=== PATIENT | male | born 1965 | race Caucasian/White ===

== ENCOUNTER 2019-11-28 14:17 | Outpatient (CLI) | payer SELFPAY ==
--- NOTE | 2019-11-28 14:22 | XR_ITS ---
WS: [id number] FOOT RIGHT TECHNIQUE: 3 views of the right foot CLINICAL INFORMATION: ATTN FIRST METATARSAL COMPARISON: November 22, 2019 FINDINGS: Normal tarsal metatarsal alignment. A few small erosions involving the first metatarsal head medially with soft tissue calcification. Recommend correlation for history of gout. No acute fractures. Normal calcaneus. Normal visualized talar dome. XR/XR foot RT min 3V* [id number] IMPRESSION: 1. A few small erosions involving the first metatarsal head medially with soft tissue calcifications suspicious for gout. Recommend correlation with clinical history. 2. No acute fractures.
== END 2019-11-28 14:18 | disposition home or self-care (01) ==
LOC: RADWPI 14:19
PROVIDERS: Family Provider Family Medicine; PCP Family Medicine; Visit Provider Family Medicine
DX: M79.671 Pain in right foot (principal); M85.871 Other specified disorders of bone density and structure, right ankle and foot
CPT/HCPCS: 73630

== ENCOUNTER 2020-12-31 14:31 | Outpatient (CLI) | payer SELFPAY | END 2020-12-31 14:32 | disposition home or self-care (01) | LOC: SPT 14:32 | PROVIDERS: Family Provider Family Medicine; PCP Family Medicine; Visit Provider Specialist | DX: Z46.89 Encounter for fitting and adjustment of other specified devices (principal); S82.52XD Displaced fracture of medial malleolus of left tibia, subsequent encounter for closed fracture with routine healing; X58.XXXD Exposure to other specified factors, subsequent encounter | CPT/HCPCS: 73590; 73610; 87635; L4361 ==

== ENCOUNTER 2021-01-01 15:29 | Outpatient (CLI) | payer SELFPAY ==
--- NOTE | 2021-01-01 15:45 | CT_ITS ---
WS: [id number] CT LEFT ANKLE NONCONTRAST, 3-D REFORMATS. HISTORY: S82.52XA - Displaced fracture of medial malleolus Technique: All CT scans at [facility] use at least one of these dose optimization techniq ues: automated exposure control; mA and/or kV adjustment per patient size (includes targeted exams wh ere dose is matched to clinical indication); or iterative reconstruction. DLP: 555.05 mGycm COMPARISON: 12/31/2020 Comminuted, mildly displaced fracture involving the medial malleolus. Several small avulsion fragmen ts are noted along the anterior and posterior medial malleolus. The main fracture is displaced 3 mm m edially. No loose body in joint the space. There is a tiny avulsion fracture versus osteophyte from t he anterior tibial plafond. No widening of the ankle mortise. Talus is intact. Calcaneus is intact. Moderate amount of soft tissue edema surrounding the ankle and foot. There is a small joint effusion extending into the anterior and posterior recesses. CT/CT ankle LT wo con* [id number] IMPRESSION: 1. Mildly comminuted and minimally displaced fracture involving the medial mal leolus. Minimal displacement by 3 mm of the main fracture fragment. 2. Small osteophyte versus avulsion fracture from the anterior tibial plafond.
== END 2021-01-01 15:30 | disposition home or self-care (01) ==
PROVIDERS: PCP Family Medicine; Visit Provider Specialist
DX: S82.52XA Displaced fracture of medial malleolus of left tibia, initial encounter for closed fracture (principal); X58.XXXA Exposure to other specified factors, initial encounter
CPT/HCPCS: 73700

== ENCOUNTER 2021-01-04 08:03 | Day surgery (SDC) | payer SELFPAY ==
[2021-01-03 14:41] VITALS: BMI 28.8
[2021-01-04] VITALS (14 sets, daily range): BP systolic 137–166; BP diastolic 88–105; PULSE 70–81; RESP 13–18; TEMP 36.6–37.4; O2SAT 93–100
--- NOTE | 2021-01-04 | XR_ITS ---
WS: [id number] Left ankle, C-arm fluoroscopy, 01/04/2021 Clinical Data: OR PICS Comparison: Left ankle, 12/31/2020. Findings: 2 orthopedic screws reducing the medial malleolar fracture. The lateral malleolus is unremarkable. The ankle mortise is normal. XR/XR ankle LT 2V [id number] Impression: Internal fixation of medial malleolar fracture of the left ankle.
--- NOTE | 2021-01-04 | SCC_ITS ---
Procedure Done: Open reduction internal fixation left medial malleolar fracture 144.9 seconds of fluoroscopic guidance, for a cumulative dose of 4.18 mGy, was provided to Dr. Alexander by the radiology department. C-arm images of the LEFT ankle were saved for the patient's permanent record. [facility] HOSPITALReymundo
--- NOTE | 2021-01-04 09:07 | W.PM.OPSUD ---
Surgery/Procedure H&P Update DATE OF PROCEDURE: January 04, 2021 DATE H&P PERFORMED: 12/31/20 H&P UPDATE INFORMATION: I have reviewed H&P completed within last 30 days, I have examined patient prior to procedure, No changes to prior documentation and H&P is in [facility] on date indicated PREOP DIAGNOSIS: Left medial malleolar fracture PLANNED PROCEDURE: Operation Date: 01/04/21 09:20 Proposed Procedures p ORIF left ankle medial malleolus fracture 03489 s82.52XA(Left) - Hanane Alexander MD Related Problem List Diagnoses (1) Fracture of medial malleolus, left, closed:
[2021-01-04] MEDS: sodium chloride 0.9% 1,000 ML 30 ML IV (09:09)
[2021-01-04] MEDS: CELEcoxib 200 mg Capsule 400 MG PO (09:10)
[2021-01-04] MEDS: acetaminophen 1,000 MG/100 ML PIGGYBACK 400 MG IV (09:11)
--- NOTE | 2021-01-04 09:11 | ANES.PREANE2 ---
Pre-Anesthetic Assessment Pre-Anesthetic Assessment: Height/Weight: Height 1.75 m Weight 88.451 kg Temp Pulse Resp BP Pulse Ox 97.8 F 76 14 155/105 96 01/04/21 08:31 01/04/21 08:31 01/04/21 08:31 01/04/21 08:31 01/04/21 08:31 Preop Diagnosis: Left medial malleolar fracture Proposed Procedure: Operation Date: 01/04/21 09:20 Proposed Procedures p ORIF left ankle medial malleolus fracture 33465 s82.52XA(Left) - Hanane Alexander MD Was Beta Jean Pierre taken within 24 hours: N/A Was Clonidine taken within 24 hours: N/A Last intake: Intake Last Liquid Date 01/03/21 Last Liquid Time 23:00 Last Solid Date 01/03/21 Last Solid Time 19:00 Social: Social History: No alcohol and No tobacco Exam: Pre-Anes Outpt Exam: alert, oriented x 3, clear to auscultation bilaterally and regular rate & rhythm Airway: Submandibular: WNL Cervical ROM: WNL MP: 3 Dentition: Full History/ROS: No significant history except as noted Anesthetic Plan: ASA status: 1 Anesthesia: General Risk of > 500 ml blood loss (7ml/kg in children): No Meds/Allergies Current Medications: Current Medications Generic Name Dose Route Start Last Admin Trade Name Freq PRN Reason Stop Dose Admin Sodium Chloride 1,000 mls @ 30 ml s/hr 01/04/21 08:30 01/04/21 09:09 Sodium Chloride 0.9% IV 01/05/21 08:29 30 mls/hr .Q24H JENNIFER Administration Data Anesthesia Cardiac Studies: No Data to Display
[2021-01-04] MEDS: fentaNYL 50 mcg/mL INJ 2mL IVP ×2 (09:26→11:10)
[2021-01-04] MEDS: ceFAZolin 1,000 mg SDV 1000 MG IRRIGATION (10:11)
[2021-01-04] MEDS: ondansetron 2 mg/ML SDV 2 mL 4 MG IVP ×2 (11:08→12:07)
[2021-01-04] MEDS: meperidine 50 mg/mL INJ 12.5 MG IVP (11:31)
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
--- NOTE | 2021-01-04 11:42 | SUR.PHASEI ---
1108 pt awake alert c/o of pain to lt foot ankle area , distal toe pink warm with cap refill less than 3 seconds, 1110 see pain med given for pain 1131 pt states pain is increased to 8 pt grimicing and shivering warm blankets x 2 see med given 1143 pt awake states pain is better, see earlier meds given will give report to ops.
--- NOTE | 2021-01-04 12:06 | SUR.PHASEII ---
medicated for nausea
[2021-01-04] MEDS: HYDROcodone-acetaminophen 5-325 mg Tablet 1 TAB PO (13:15)
--- NOTE | 2021-01-04 15:51 | ANE.PACU2 ---
Inpatient post-anesthesia follow up: Airway intact: Yes Vital signs: Temperature 98.0 F Pulse Rate 74 Respiratory Rate 14 Blood Pressure 137/95 Pulse Oximetry 96 Oxygen Delivery Me thod Room Air Oxygen Flow Rate Fraction of Inspir ed Oxygen Hydration adequate: Yes Nausea and vomiting: No Pain level: 2 Mental status: Baseline
== END 2021-01-04 13:15 | disposition home or self-care (01) ==
PROVIDERS: PCP Family Medicine; Visit Provider Specialist
PROC: (CPT 27766; principal; 2021-01-04 09:20)
DX: S82.52XA Displaced fracture of medial malleolus of left tibia, initial encounter for closed fracture (principal); V86.96XA Unspecified occupant of dirt bike or motor/cross bike injured in nontraffic accident, initial encounter
CPT/HCPCS: 27766; 73600; 76000; 96365; 96374; C1713; J0330; J0690; J2175; J2250; J2405; J2704; J3010; J3490; J7030

== ENCOUNTER → 2021-01-21 10:23 | Outpatient (BNVA) | payer SELFPAY | PROVIDERS: PCP Family Medicine; Visit Provider Specialist | DX: Z48.89 Encounter for other specified surgical aftercare (principal) | CPT/HCPCS: 73610 ==

== ENCOUNTER → 2021-02-14 08:52 | Outpatient (BNVA) | payer SELFPAY | PROVIDERS: PCP Family Medicine; Visit Provider Specialist | DX: Z48.89 Encounter for other specified surgical aftercare (principal); S82.52XA Displaced fracture of medial malleolus of left tibia, initial encounter for closed fracture; X58.XXXA Exposure to other specified factors, initial encounter | CPT/HCPCS: 73610 ==

== ENCOUNTER 2021-02-14 11:37 | Outpatient (CLI) | payer SELFPAY | END 2021-02-14 11:38 | disposition home or self-care (01) | LOC: SPT 11:38 | PROVIDERS: PCP Family Medicine; Visit Provider Specialist | DX: Z46.89 Encounter for fitting and adjustment of other specified devices (principal); S82.52XD Displaced fracture of medial malleolus of left tibia, subsequent encounter for closed fracture with routine healing; X58.XXXD Exposure to other specified factors, subsequent encounter | CPT/HCPCS: L1902 ==

== ENCOUNTER 2021-09-29 15:55 | Emergency (ER) | payer SELFPAY ==
[2021-09-29] VITALS (9 sets, daily range): BP systolic 102–154; BP diastolic 78–118; PULSE 105–135; RESP 16–20; TEMP 36.7; O2SAT 95–98; BMI 29.5
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
--- NOTE | 2021-09-29 16:01 | ECG_ITS ---
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 Measurements Intervals [place] Rate: 110 P: 55 MT: 151 QRS: -18 QRSD: 81 T: 71 QT: 344 QTc: 465 Interpretive Statements SINUS TACHYCARDIA SEPTAL MYOCARDIAL INFARCTION , PROBABLY OLD [40+ ms Q WAVE IN V1/V2] No previous ECG available for comparison Electronically Signed On 09-29-2021 22:01:43 CDT by Maye Dela Cruz M.D. [email or web address] general [id number]
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
[2021-09-29 16:25] LABS: Basophils # 0.1 10^3/uL (0.0-0.1); Basophils % 0.3 %; Eosinophils % 0.2 %; Hematocrit 46.8 % (42.0-52.0); Hemoglobin 15.7 g/dL (11.7-16.6); Lymphocytes # 2.2 10^3/uL (0.8-4.8); Lymphocytes % 10.9 %; Mean Corpuscular HGB Conc 33.5 g/dL (30.0-36.0); Mean Corpuscular Hemoglobin 31.6 pg (28.0-34.0); Mean Corpuscular Volume 94.2 fl (80-94); Monocytes # 1.2 10^3/uL (0.2-0.9); Monocytes % 5.9 %; Neutrophils # 16.08 10^3/uL (1.8-7.7); Neutrophils % 81.4 %; Nucleated Red Blood Cells % 0 %; Platelet Count 303 10^3/cmm (130-400); Red Blood Count 4.97 10^6/uL (4.1-5.3); Red Cell Distribution Width 13.1 % (12.1-15.1); White Blood Count 19.8 10^3/uL (4.0-10.0)
[2021-09-29 16:34] LABS: INR 1.06 (0.8-1.2); Partial Thromboplastin Time 20.9 SECONDS (23.9-36.7)
[2021-09-29 16:45] LABS: Alanine Aminotransferase 65 U/L (0-41); Albumin Level 3.9 g/dL (3.5-5.2); Alkaline Phosphatase 102 IU/L (40-130); Anion Gap 18.2 (5-19); Aspartate Amino Transferase 55 U/L (0-40); Blood Urea Nitrogen 11 mg/dL (6-20); Calcium 8.6 mg/dL (8.5-10.5); Carbon Dioxide 20 mmol/L (22-29); Chloride 104 mmol/L (98-107); Globulin 2.5 g/dL (1.3-4.6); Glomerular Filtration Rate 44.9 mL/min (90-130); Glucose 215 mg/dL (65-115); Osmolality Calculated 294 mOsm/kg (285-295); Potassium 3.2 mmol/L (3.5-5.1); Sodium 139 mmol/L (136-145); Total Bilirubin 0.5 mg/dL (0.15-1.2); Total Protein 6.4 g/dL (6.6-8.7)
[2021-09-29 16:46] LABS: Troponin(5th) Baseline 18 ng/L (0-15)
[2021-09-29] MEDS: tetanus-diphtheria tox (adult) 0.5 mL SDV IM (16:57)
[2021-09-29] MEDS: fentaNYL 50 mcg/mL INJ 2mL IVP ×2 (17:05→17:34)
--- NOTE | 2021-09-29 17:33 | XRR_ITS ---
PROCEDURE INFORMATION: Exam: XR Chest Exam date and time: 09/29/2021 5:38 PM Age: 56 years old Clinical indication: Device placement; Chest tube; Additional info: Chest tbue placement TECHNIQUE: Imaging protocol: XR of the chest. Views: 1 view. COMPARISON: CR (CHEST, ) 09/29/2021 4:31 PM FINDINGS: Tubes, catheters and devices: Interval placement of left-sided chest tube however the tube is noted just outside the thoracic cavity, lateral to the left upper ribs. Multiple left rib fractures are again noted with displacement. Lungs: Probable retrocardiac linear atelectasis. Pleural spaces: Small left pneumothorax which was better seen on the recent CT exam measuring about 20% on the CT images. Heart/Mediastinum: See Soft tissues finding. Bones/joints: See Tubes, catheters and devices finding. Soft tissues: Pneumomediastinum and soft tissue air is again noted similar to most recent examination. XR/XR chest 1V portable [id number] IMPRESSION: Interval placement of left chest tube with the tip outside the pleural space and should be repositioned.
--- NOTE | 2021-09-29 17:33 | XRR_ITS ---
PROCEDURE INFORMATION: Exam: XR Chest Exam date and time: 09/29/2021 6:16 PM Age: 56 years old Clinical indication: Device placement; Patient HX: L chest tube placement; Additional info: Chest tbue placement TECHNIQUE: Imaging protocol: XR of the chest. Views: 1 view. COMPARISON: CR XR chest 1V portable [id number] 09/29/2021 5:38 PM FINDINGS: Tubes, catheters and devices: The left chest tube has been reposition and is now projecting in the left superior/mid thorax. Again seen is left pneumothorax along the lateral aspect and in the left basilar region. Lungs: No consolidation. Pleural spaces: See Tubes, catheters and devices finding. Heart/Mediastinum: No cardiomegaly. Bones/joints: Multiple left rib fractures. Other findings: No other significant change. XR/XR chest 1V portable [id number] IMPRESSION: Repositioning of left chest tube as described above. No other significant change.
--- NOTE | 2021-09-29 17:45 | PC.NURSE ---
PATIENT CHEST TUBE PLACED BY PROVIDER. PATIENT CHEST TUBE SUCTION SET TO INTERMITTENT AND DRAINING.
--- NOTE | 2021-09-29 18:42 | PC.NURSE ---
KETAMINE WASTED WITH CHRISTIANNE MARIE, 410 MG.
== END 2021-09-29 19:04 | disposition short-term general hospital (02) ==
PROVIDERS: Emergency Provider Emergency Medicine; PCP Family Medicine
DX: S22.42XA Multiple fractures of ribs, left side, initial encounter for closed fracture (principal); J93.9 Pneumothorax, unspecified; T79.7XXA Traumatic subcutaneous emphysema, initial encounter; V28.4XXA Motorcycle driver injured in noncollision transport accident in traffic accident, initial encounter
CPT/HCPCS: 32551; 70450; 71045; 71260; 72125; 74177; 80053; 84484; 85025; 85610; 85730; 86850; 86900; 90471; 90714; 93005; 96374; 96375; 99291; 99292; J3010; J3490; Q9967

== ENCOUNTER → 2022-08-12 12:45 | Outpatient (BNVA) | payer SELFPAY | PROVIDERS: PCP Family Medicine; Visit Provider Family Medicine | DX: Z00.00 Encounter for general adult medical examination without abnormal findings (principal); Z12.11 Encounter for screening for malignant neoplasm of colon; L98.9 Disorder of the skin and subcutaneous tissue, unspecified | CPT/HCPCS: 80053; 80061; 84443; 85025 ==

== ENCOUNTER → 2022-12-11 09:58 | Outpatient (BNVA) | payer SELFPAY | PROVIDERS: PCP Family Medicine; Visit Provider Family Medicine | DX: R74.8 Abnormal levels of other serum enzymes (principal); E78.00 Pure hypercholesterolemia, unspecified; D58.2 Other hemoglobinopathies; Z13.6 Encounter for screening for cardiovascular disorders; Z12.11 Encounter for screening for malignant neoplasm of colon; R03.0 Elevated blood-pressure reading, without diagnosis of hypertension | CPT/HCPCS: 80053; 80061; 82728; 83540; 85025 ==

== ENCOUNTER → 2023-01-13 08:22 | Outpatient (BNVA) | payer SELFPAY | PROVIDERS: PCP Family Medicine; Visit Provider Family Medicine | DX: D58.2 Other hemoglobinopathies (principal); R74.8 Abnormal levels of other serum enzymes; E78.00 Pure hypercholesterolemia, unspecified; R60.9 Edema, unspecified; R03.0 Elevated blood-pressure reading, without diagnosis of hypertension | CPT/HCPCS: 82728; 83540; 85025 ==

== ENCOUNTER 2023-02-09 08:30 | Oncology outpatient (recurring) (ONCR) | payer SELFPAY ==
[2023-01-22 10:47] LABS: Reticulocyte % 1.4 % (0.5-2.0)
[2023-01-22 11:00] VITALS: BP 129/90; PULSE 71; TEMP 36.2; O2SAT 97
[2023-01-26 09:35] LABS: Erythropoietin 3.3 mIU/mL (2.6-18.5)
[2023-01-31 23:55] LABS: CALR Exon 9 Mutation NOT DETECTED (NOT DETECTED); CALR Exon Specimen Source Blood
[2023-02-04 23:30] LABS: CALR Exon 9 Mutation NOT DETECTED (NOT DETECTED); CSF3R Exon 14/17 Mutation NOT DETECTED (NOT DETECTED); JAK2 Exon 12 Mutation NOT DETECTED (NOT DETECTED); JAK2 V617 Block Specimen ID NG; JAK2 V617 Clinical Indication NG; JAK2 V617 Mutation NOT DETECTED (NOT DETECTED); JAK2 V617 Specimen Source EDTA; MPL Exon 12 Mutation NOT DETECTED (NOT DETECTED)
[2023-02-09 08:30] VITALS: BP 163/92; PULSE 64; RESP 18; TEMP 36.4; O2SAT 100
[2023-02-09 08:49] LABS: Basophils # 0.1 10^3/uL (0.0-0.1); Basophils % 0.6 %; Eosinophils # 0.3 10^3/uL (0.0-0.8); Eosinophils % 3.9 %; Hematocrit 48.7 % (42.0-52.0); Hemoglobin 16.2 g/dL (11.7-16.6); Lymphocytes # 2.6 10^3/uL (0.8-4.8); Lymphocytes % 32.2 %; Mean Corpuscular HGB Conc 33.3 g/dL (30.0-36.0); Mean Corpuscular Hemoglobin 31.2 pg (28.0-34.0); Mean Corpuscular Volume 93.8 fl (80-94); Mean Platelet Volume 10.2 fL (7.4-10.4); Monocytes # 0.7 10^3/uL (0.2-0.9); Monocytes % 8.7 %; Nucleated Red Blood Cells % 0 %; Platelet Count 280 10^3/cmm (130-400); Red Blood Count 5.19 10^6/uL (4.1-5.3); Red Cell Distribution Width 13.2 % (12.1-15.1); White Blood Count 8.2 10^3/uL (4.0-10.0)
[2023-02-09 12:00] VITALS: BP 166/104; PULSE 67; RESP 18; TEMP 35.9; O2SAT 99
== END 2023-02-19 23:59 | disposition home or self-care (01) ==
PROVIDERS: PCP Family Medicine; Visit Provider Internal Medicine Medical Oncology
DX: D75.1 Secondary polycythemia (principal)
CPT/HCPCS: 36415; 81219; 81270; 81279; 81339; 81479; 82668; 85025; 85045; 99195

== ENCOUNTER 2023-03-09 09:55 | Oncology outpatient (recurring) (ONCR) | payer SELFPAY ==
[2023-03-09 10:10] VITALS: BP 165/104; PULSE 77; RESP 16; TEMP 36.8; O2SAT 97
[2023-03-09 10:29] LABS: Basophils % 0.5 %; Eosinophils # 0.1 10^3/uL (0.0-0.8); Eosinophils % 1.6 %; Hematocrit 51.4 % (37-53); Lymphocytes # 2.1 10^3/uL (0.8-4.8); Lymphocytes % 25.9 %; Mean Corpuscular HGB Conc 33.9 g/dL (30-55); Mean Corpuscular Hemoglobin 32.2 pg (27-33); Mean Platelet Volume 9.7 fL (7.4-10.4); Monocytes # 0.5 10^3/uL (0.2-0.9); Monocytes % 6.8 %; Neutrophils # 5.11 10^3/uL (1.8-7.7); Neutrophils % 64.7 %; Nucleated Red Blood Cells % 0 %; Platelet Count 224 10^3/cmm (157-399); Red Blood Count 5.41 10^6/uL (3.85-5.65); Red Cell Distribution Width 13.9 % (12.1-15.1); White Blood Count 7.91 10^3/uL (3.29-11.43)
== END 2023-03-21 23:59 | disposition home or self-care (01) ==
PROVIDERS: PCP Family Medicine; Visit Provider Internal Medicine Medical Oncology
DX: D75.1 Secondary polycythemia (principal); Z53.9 Procedure and treatment not carried out, unspecified reason
CPT/HCPCS: 36415; 85025

== ENCOUNTER 2023-06-08 11:20 | Oncology outpatient (recurring) (ONCR) | payer SELFPAY ==
[2023-06-08 11:27] VITALS: BP 169/101; PULSE 75; RESP 16; TEMP 36.8; O2SAT 97
[2023-06-08 12:09] LABS: Basophils % 0.3 %; Eosinophils # 0.1 10^3/uL (0.0-0.8); Eosinophils % 1.5 %; Hematocrit 49.4 % (37-53); Lymphocytes # 2.3 10^3/uL (0.8-4.8); Lymphocytes % 25.7 %; Mean Corpuscular HGB Conc 33.6 g/dL (30-55); Mean Corpuscular Hemoglobin 30.7 pg (27-33); Mean Corpuscular Volume 91.3 fl (82-101); Mean Platelet Volume 9.5 fL (7.4-10.4); Monocytes # 0.7 10^3/uL (0.2-0.9); Neutrophils # 5.79 10^3/uL (1.8-7.7); Neutrophils % 64.1 %; Nucleated Red Blood Cells % 0 %; Platelet Count 261 10^3/cmm (157-399); Red Blood Count 5.41 10^6/uL (3.85-5.65); Red Cell Distribution Width 12.6 % (12.1-15.1); White Blood Count 9.05 10^3/uL (3.29-11.43)
[2023-06-08 12:24] LABS: Alanine Aminotransferase 49 U/L (0-41); Albumin Level 4.3 g/dL (3.5-5.2); Alkaline Phosphatase 96 U/L (40-130); Anion Gap 17.7 (5-19); Aspartate Amino Transferase 36 U/L (0-40); Blood Urea Nitrogen 9 mg/dL (6-20); Carbon Dioxide 23 mmol/L (22-29); Chloride 98 mmol/L (98-107); Globulin 2.5 g/dL (1.3-4.6); Glucose 115 mg/dL (65-115); Osmolality Calculated 280 mOsm/kg (285-295); Potassium 3.7 mmol/L (3.5-5.1); Sodium 135 mmol/L (136-145); Total Bilirubin 0.7 mg/dL (0.15-1.2); Total Protein 6.8 g/dL (6.6-8.7)
== END 2023-06-21 23:59 | disposition home or self-care (01) ==
PROVIDERS: Internal Medicine Medical Oncology; PCP Family Medicine; Visit Provider Internal Medicine Medical Oncology
DX: D75.1 Secondary polycythemia (principal); Z79.899 Other long term (current) drug therapy
CPT/HCPCS: 36415; 80053; 81256; 85025